=== PATIENT | male | born 1950 | race Caucasian/White ===

== ENCOUNTER 2017-08-08 11:00 | Outpatient (CLI) | payer MEDICARE ==
[~2017-08-08] VITALS: Ht 177.8 cm; Wt 79.4 kg
[~2017-08-08 11:00] MED LIST: FINA5TAB6 PO; HYOS0.1281 PO; LEVO500T2 PO; PHEN-640 PO; TAMS0.4C2 PO
== END 2017-08-08 11:15 ==
LOC: PREOP 11:00
PROVIDERS: ATTEND Internal Medicine
DX: Z01.818 Encounter for other preprocedural examination (principal); Z86.010 Personal history of colon polyps

== ENCOUNTER 2017-08-11 07:46 | Day surgery (SDC) | payer MEDICARE ==
--- NOTE | 2017-07-28 07:49 | HISTORY AND PHYSICAL ---
DATE OF SERVICE: COLONOSCOPY HISTORY AND PHYSICAL HISTORY OF PRESENT ILLNESS: The patient is a 66-year-old white male seen in the office on 07/24/2017 for followup of Paget's disease first diagnosed in 2014 with relatively limited involvement involving the right iliac crest and right ischium. He has a past history of adenomatous colon polyps and had been nearly 5-1/2 years since his last colonoscopy. He was subsequently set up for surveillance colonoscopy on 08/11/2017 for this reason. He reports three weeks ago he had an episode of nausea and vomiting followed by diarrhea that lasted for about 72 hours. He was able to maintain hydration and denied melena or bright red blood per rectum or any significant associated intestinal cramping. He believes he is back to baseline bowel habits as well as energy level. He denies any problems with right-sided hip, buttock, pelvic or groin discomfort and remains physically active. He denies orthopnea, PND, pedal edema, dyspnea on exertion, palpitations or chest discomfort. PAST SURGICAL HISTORY: Significant for transurethral resection of the prostate in February 2016. In September 2016, he underwent right carpal tunnel release. Following this, he underwent left carpal tunnel release and left index finger trigger release procedure. PAST MEDICAL HISTORY: Other than Paget's disease, he has had a history of gout. He has not had any gouty flare since I last saw him six months ago and still has about 10 indomethacin at home that has worked well for his acute gout. PHYSICAL EXAMINATION: GENERAL: Reveals a well-appearing white male, in no acute distress. VITAL SIGNS: Blood pressure 140/80, heart rate 70 and regular. NECK: Revealed no JVD, adenopathy or bruits. HEENT: Oral cavity reveals Mallampati class I configuration with no exudate or erythema. CHEST: Clear to auscultation. CARDIOVASCULAR: Reveals a regular rate and rhythm without murmur, S3 or S4. ABDOMEN: Soft, supple without mass, organomegaly or tenderness. He had no pain to palpation over the iliac crest bilaterally or the lateral hips. No deformity is noted to palpation. EXTREMITIES: Reveal no cyanosis, clubbing or edema. ASSESSMENT AND PLAN: 1. Limited Paget's disease. Blood tests were reviewed with the patient. His chemistry panel was normal except for a very slowly increasing alkaline phosphatase, level was 166 today compared to 153 six months ago. The remainder of chemistry panel is normal. I will see him back in 6 months with repeat CMP. He continues to follow up with Dr. Lundy on a yearly basis for PSAs and digital rectal evaluation and prostate evaluation. 2. Due to past history of adenomatous colon polyps, he was set up for repeat surveillance colonoscopy on 08/11/2017. Prep instructions with Suprep kit were given and questions were answered. He is to abstain from nonsteroidals and aspirin a week prior to the procedure. For gout flare, he is to call and would have to use prednisone in a week interval prior to colonoscopy. Prep instructions were given and questions were answered. I am his primary care physician. Job ID: [id number] DocumentID: [id number] Dictated Date: 07/25/2017 13:46:40 Senior Javascript Developer Date: 07/25/2017 14:28:14 Dictated By: ALLYSON DUMONT MD
[~2017-08-11] VITALS: Ht 177.8 cm; Wt 79.4 kg
[2017-08-11] MEDS ORDERED: 1/2 NS IV SOLUTION 1,000 ML IV ONE (07:50)
[2017-08-11] MEDS ORDERED: 1/2 NS IV SOLUTION 1,000 ML IV STA (07:52)
[2017-08-11] MEDS ORDERED: MIDAZOLAM 2 MG/2 ML (VERSED) VIAL IVP PRN (08:00)
[2017-08-11] MEDS ORDERED: fentaNYL INJECTION 100 MCG/2 ML AMP IVP PRN (08:00)
[2017-08-11] MEDS ORDERED: LIDOCAINE JELLY 2% (XYLOCAINE) 5 ML TUBE MM PRN (08:00)
[2017-08-11 08:20] VITALS: BP 148/89
--- NOTE | 2017-08-11 08:36 | Pre-Op Note & Conscious Sedat ---
Pre-Operative Progress Note H&P Reviewed The H&P was reviewed, patient examined and no changes noted. Date H&P Reviewed: Aug 11, 2017 Time H&P Reviewed: 08:30 Conscious Sedation Pre-Proced ASA Class: 2 Airway Mallampati Classification: ([facility] appropriate class) I. II. III, IV Lungs Heart ASA score ASA 1: a normal healthy patient ASA 2: a patient with a mild systemic disease (mid diabetes, controlled hypertension, obesity ASA 3: a patient with a severe systemic disease that limits activity (angina , COPD, prior Myocardial infarction) ASA 4: a patient with an incapacitating disease that is a constant threat to life (CHF, renal failure) ASA 5: a moribund patient not expected to survive 24 hrs. (ruptured aneurysm) ASA 6: a declared brain patient whose organs are being harvested. For emergent operations, add the letter E after the classification Grade 1 Sedation Plan: Analgesia, Amnesia, Plan communicated to team members, Discussed options with patient/fam, Discussed risks with patient/fam Note The patient is an appropriate candidate to undergo the planned procedure, sedation, and anesthesia. The patient immediately re-assessed prior to indication. ALLYSON DUMONT MD Aug 11, 2017 08:36
[2017-08-11] MEDS ORDERED: LIDOCAINE JELLY 2% (XYLOCAINE) 5 ML TUBE ONE (08:39)
[2017-08-11] MEDS ORDERED: fentaNYL INJECTION 100 MCG/2 ML AMP ONE (08:39)
[2017-08-11] MEDS ORDERED: MIDAZOLAM 2 MG/2 ML (VERSED) VIAL ONE (08:39)
[2017-08-11 09:25] VITALS: BP 138/87
[2017-08-11 09:51] VITALS: BP 136/86
[2017-08-11 10:10] VITALS: BP 136/86
--- NOTE | 2017-08-11 13:14 | OPERATIVE REPORT ---
DATE OF SERVICE: 08/11/2017 INDICATION FOR THE PROCEDURE: This is a surveillance colonoscopy performed due to past history of colon polyps. The patient was placed in the left lateral decubitus position. Prior to undergoing colonoscopy, a digital rectal evaluation was performed. The prostate was flat, anodular and nontender to digital inspection. No other abnormalities were noted on digital inspection of the distal rectal vault or anal canal. The colonoscope was then inserted into the rectum under direct visualization and advanced to the cecum. The cecum was identified by identification of the ileocecal valve and cecal strap. Photographic documentation was obtained. Careful inspection was made as the colonoscope was withdrawn. The patient tolerated the procedure well, although did have some calf cramping during the procedure. FINDINGS: There is no evidence for internal or external hemorrhoids in the rectum, sigmoid colon, descending colon, splenic flexure, transverse colon, hepatic flexure and ascending colon were unremarkable. A diminutive 2 mm sessile polyp was noted in the cecum. It was photographed, biopsied and ablated with no subsequent blood loss. Remainder of the cecum was unremarkable. ASSESSMENT: One diminutive polyp was removed from the cecum with otherwise normal colonoscopy and digital evaluation of the prostate. The patient is not aware of any family history for colon cancer. We will likely be abdicating repeat surveillance colonoscopy in 5 to 10 years pending histopathology report. Job ID: [id number] DocumentID: [id number] Dictated Date: 08/11/2017 09:26:59 Ticket Taker [employer]erry[employer] Date: 08/11/2017 13:13:48 Dictated By: ALLYSON DUMONT MD MTDD
== END 2017-08-11 10:10 | disposition home or self-care (01) ==
LOC: ENDO 07:46
PROVIDERS: ATTEND Internal Medicine
DX: Z12.11 Encounter for screening for malignant neoplasm of colon (principal); K63.5 Polyp of colon; M88.851 Osteitis deformans of right thigh; M10.9 Gout, unspecified; Z86.010 Personal history of colon polyps; Z79.899 Other long term (current) drug therapy

== ENCOUNTER → 2020-06-26 | Outpatient (CLI) | payer MEDICARE ==
--- NOTE | 2020-06-26 11:25 | Diagnostic Imaging Report ---
EXAMINATION: Bilateral hands at 10:53 a.m. INDICATION: Rheumatoid arthritis. Three views of both hands were obtained. There are no prior studies available for comparison. There is no fracture, dislocation or acute bony abnormality evident. There is severe degenerative disease involving both 2nd metacarpophalangeal joints, particularly the left 2nd metacarpophalangeal joint. There is near complete obliteration of the joint space of the metacarpophalangeal joints and there is degenerative cyst formation involving the opposing surfaces of the 2nd metacarpal and proximal phalanx on the left. Less severe degenerative cystic disease also seen in the head of the 2nd metacarpal on the right. There is also at least moderate degenerative disease of the 3rd metacarpophalangeal joint on the left. In addition there is severe degenerative disease of both triscaphe joints and there is narrowing of each radiocarpal joint. There is also irregularity of the ulnar styloid of the left ulna. Chondrocalcinosis of both triangular fibrocartilages is seen as well. There are also vascular calcifications evident. In addition there are number of minute radiopaque densities in the soft tissues along the volar aspect of the distal phalanx of the thumb. These may represent foreign bodies. There is also a small metallic clip in the soft tissues adjacent to the dorsal aspect of the base of the middle phalanx of the 5th digit of the right hand. IMPRESSION: 1. There is no evidence for an acute bony abnormality. 2. There is degenerative disease involving both hands, particularly the left hand. 3. There do appear to be a number of small foreign bodies in the soft tissues along the volar aspect of the distal phalanx of the left thumb. There is also a small metallic clip along the posterior margin of the middle phalanx of the 5th digit of the right hand. Dictated by: Dictated on workstation # [id number]
== END ==
LOC: RAD 09:59
PROVIDERS: ATTEND Nurse Practitioner Family
DX: M19.041 Primary osteoarthritis, right hand (principal); M19.042 Primary osteoarthritis, left hand

== ENCOUNTER → 2021-08-05 | Outpatient (CLI) | payer MEDICARE, OTHER | LOC: PREOP 06:36 | PROVIDERS: ATTEND Internal Medicine | DX: Z01.818 Encounter for other preprocedural examination (principal) ==

== ENCOUNTER 2021-08-13 09:18 | Day surgery (SDC) | payer MEDICARE, OTHER ==
--- NOTE | 2021-08-04 19:37 | HISTORY AND PHYSICAL ---
DATE OF SERVICE: COLONOSCOPY HISTORY AND ADMISSION HISTORY OF PRESENT ILLNESS: The patient is a 70-year-old white male who presented to the office reporting rectal discomfort, not during bowel movements but shortly after. Reports if he sits too long in a chair, he has a same sensation. This has been going on for a month. He denies bright red blood per rectum, but he does have a sensation of incomplete evacuation. He sees Dr. Lundy, local urologist and his last visit was the beginning of the year prior to the onset of these symptoms. He reports his PSA was stable and no changes were recommended. He does have a history of Paget's disease with pelvic involvement, but it is the right ischium and iliac crest. He does not associate any symptoms when he is walking or weightbearing. He has noticed some crusted lesions on his scalp where his hair is thinnest. He reports some occasional mild low back pain. Denies any radicular type symptoms. Energy level and weight have been stable. He had one episode of lateral foot pain and only lasted 24 hours, so I did not think that it was gout. He did not note any swelling or erythema. It then resolved. He does have a history of chronic gout. PHYSICAL EXAMINATION: GENERAL: Reveals a white male, appeared to be in no acute distress. Weight was up 5.6 pounds, 170.4. VITAL SIGNS: Blood pressure 142/80. HEENT: Unremarkable. Sclerae nonicteric. CHEST: Clear to auscultation. CARDIOVASCULAR: Reveals regular rate and rhythm without murmur, S3 or S4. ABDOMEN: Soft, supple without mass, organomegaly or tenderness. EXTREMITIES: Reveal no cyanosis, clubbing or edema. He had some scaling lesions compatible actinic keratosis on his scalp. He underwent cryotherapy x3. ASSESSMENT AND PLAN: 1. Rectal pain with change in bowel habits. For this reason, the patient is being set up for diagnostic colonoscopy. Prep instructions with Suprep kit were given and questions answered. 2. Paget's disease. I doubt that this has anything to do with his perirectal discomfort. We will need to digital evaluation of the prostate at that time. We reviewed his blood work. His alkaline phosphatase is a little bit higher and slowly increasing compatible with Paget's, which we are symptomatically following. He is having no pain and has rather limited disease. Continue conservative management. 3. Chronic gout. Uric acid level 6. Continue allopurinol. We will see him back in 6 months with a CMP and a CBC. Job ID: [id number] DocumentID: [id number] Dictated Date: 08/02/2021 11:53:19 Mold Making Supervisor Date: 08/02/2021 13:00:52 Dictated By: ALLYSON DUMONT MD
[~2021-08-13] VITALS: Ht 175 cm; Wt 77.1 kg
[~2021-08-13 09:18] MED LIST changes: +ALLO300T2 PO
[2021-08-13] MEDS ORDERED: LACTATED RINGERS 1,000 ML IV ONE (09:25)
[2021-08-13] MEDS ORDERED: LACTATED RINGERS 1,000 ML IV STA (09:29)
[2021-08-13] MEDS ORDERED: HURRICAINE EXT TUBE (BENZOCAINE) XX PRN (09:30)
[2021-08-13 09:43] VITALS: BP 131/87
--- NOTE | 2021-08-13 09:46 | Pre-Op Note & Conscious Sedat ---
Pre-Operative Progress Note H&P Reviewed The H&P was reviewed, patient examined and no changes noted. Date H&P Reviewed: Aug 13, 2021 Time H&P Reviewed: 09:45 Conscious Sedation Pre-Proced ASA Score 2 For ASA 3 and 4: Consider anesthesia and medical clearance. Also, for patients with a history of failed moderate sedation consider anesthesia. Airway Lungs Heart ASA score ASA 1: a normal healthy patient ASA 2: a patient with a mild systemic disease (mid diabetes, controlled hypertension, obesity ASA 3: a patient with a severe systemic disease that limits activity (angina, COPD, prior Myocardial infarction) ASA 4: a patient with an incapacitating disease that is a constant threat to life (CHF, renal failure) ASA 5: a moribund patient not expected to survive 24 hrs. (ruptured aneurysm) ASA 6: a declared brain- patient whose organs are being harvested. For emergent operations, add the letter E after the classification Mallampati Classification Grade 2 Sedation Plan Analgesia, Amnesia, Plan communicated to team members, Discussed options with patient/fam, Discussed risks with patient/fam The patient is an appropriate candidate to undergo the planned procedure, sedation, and anesthesia. The patient immediately re-assessed prior to indication. ALLYSON DUMONT MD Aug 13, 2021 09:45
[2021-08-13] MEDS ORDERED: MIDAZOLAM 2 MG/2 ML (VERSED) VIAL ONE (10:29)
[2021-08-13] MEDS ORDERED: PROPOFOL INJECTION 50 ML IV ONE (10:29)
[2021-08-13 11:00] VITALS: BP 106/66
[2021-08-13 11:05] VITALS: BP 121/70
[2021-08-13 11:25] VITALS: BP 111/74
[2021-08-13 11:35] VITALS: BP 111/74
--- NOTE | 2021-08-13 13:51 | Anesthesia-General Post-Op ---
MAC Patient Condition Mental Status/LOC: Same as Preop Cardiovascular: Satisfactory Nausea/Vomiting: Absent Respiratory: Satisfactory Pain: Controlled Complications: Absent Post Op Complications Complications None Follow Up Care/Instructions Patient Instructions None needed. Anesthesiology Discharge Order Discharge Order Patient is doing well, no complaints, stable vital signs, no apparent adverse anesthesia problems. No complications reported per nursing. KEVIN MAIN CRNA Aug 13, 2021 13:50
--- NOTE | 2021-08-13 16:02 | OPERATIVE REPORT ---
DATE OF SERVICE: COLONOSCOPY SUMMARY PRIMARY CARE PHYSICIAN: Allyson Dumont MD. INDICATION FOR PROCEDURE: Bowel habit change and rectal pain. DESCRIPTION OF PROCEDURE: The patient was placed in the left lateral decubitus position. Prior to undergoing colonoscopy, digital rectal evaluation was performed. Anal sphincter tone was normal and the perianal reflexes intact. The prostate was unremarkable to digital inspection. No abnormalities were noted on digital inspection of the anal canal or distal rectal vault. The colonoscope was then inserted into the rectum and under direct visualization advanced to the cecum. The cecum was identified by identification of ileocecal valve and cecal strap. Photographic documentation was obtained. The quality of the prep was only fair with small amount of retained semisolid stool noted in the cecum and proximal ascending colon. Procedure was done under AI surveillance with the [facility] program. FINDINGS: Present in the distal rectum was a 4 mm sessile adenomatous appearing polyp. It was biopsied and ablated with no subsequent blood loss. The remainder of the rectum was unremarkable. No evidence for internal and external hemorrhoids were noted and there was no evidence to suggest an anal fissure formation. The sigmoid colon, descending colon, splenic flexure, transverse colon, hepatic flexure, ascending colon, and cecum were unremarkable. ASSESSMENT: One adenomatous appearing 4 mm sessile distal rectal polyp was noted. As long as there is no surprising histopathology report, I would advocate consideration for repeat surveillance colonoscopy in five years. Job ID: [id number] DocumentID: [id number] Dictated Date: 08/13/2021 11:01:15 Alarm Operator Date: 08/13/2021 16:02:06 Dictated By: ALLYSON DUMONT MD
== END 2021-08-13 11:45 | disposition home or self-care (01) ==
LOC: ENDO 09:18
PROVIDERS: ATTEND Internal Medicine
DX: D12.8 Benign neoplasm of rectum (principal); M1A.9XX0 Chronic gout, unspecified, without tophus (tophi); Z87.898 Personal history of other specified conditions